=== PATIENT | male | born 2005 | race African-American/Black ===

== ENCOUNTER 2023-08-21 16:44 | Emergency (ER) | payer SELFPAY ==
--- NOTE | 2023-08-21 18:05 | ED Physician Documentation ---
PD HPI HEENT - Stated complaint Stated Complaint: BILAT EAR PX - Chief complaint Chief Complaint: Heent - History obtained from History obtained from: Patient, Family - Additional information Additional information: The patient comes to the emergency department chief complaint of bilateral ear pain and discomfort. He has a longstanding history of ear discomfort which is usually mostly an itching sensation. He also has decreased hearing which he states is chronic. The patient does use ear buds on a regular basis but does not use earplugs. He took a flight from [place] to here on August 09, but denies scuba diving or swimming. No fevers or chills. He did have a cold recently and has some congestion left over from that. He states his right ear is slightly worse than his left ear. He has occasionally noticed a spot of clearish yellow drainage on his pillow after sleeping. He is otherwise healthy and is not a diabetic. No foreign bodies to his ear. No other complaints at this time. No tinnitus. PD PAST MEDICAL HISTORY - Past Medical History Past Medical History: No Cardiovascular: None Respiratory: None Neuro: None Endocrine/Autoimmune: None GI: None : None HEENT: None Psych: None Musculoskeletal: None Derm: None - Past Surgical History Past Surgical History: No - Present Medications Home Medications: Ambulatory Orders Medication Instructions Recorded Confirmed Ciproflox/Dexameth Otic Drops 4 drops OT BID #7.5 ml 08/21/23 [Ciprodex Otic Drops] - Allergies Allergies/Adverse Reactions: Allergies Allergy/AdvReac Type Severity Reaction Status Date / Time No Known Drug Allergies Allergy Verified 08/21/23 16:56 - Social History Does the pt smoke?: No Smoking Status: Never smoker Does the pt drink ETOH?: Yes Does the pt have substance abuse?: No - Immunizations Immunizations are current?: Yes PD ED PE NORMAL - Vitals Vital signs reviewed: Yes - General General: Alert and oriented X 3, No acute distress, Well developed/nourished - HEENT HEENT: Atraumatic, PERRL, EOMI, Moist mucous membranes, Other (Bogginess of bilateral external auditory canals with Moderate cerumen. Mild weeping. Tympanic membranes intact, no erythema.) - Respiratory Respiratory: No respiratory distress - Derm Derm: Normal color, Warm and dry, No rash - Extremities Extremities: No deformity - Neuro Neuro: Other (No gross deficits.) - Psych Psych: Normal mood, Normal affect Results - Vitals Vitals: Vital Signs - 24 hr 08/21/23 16:56 Temperature 37 C Heart Rate 70 Respiratory 16 Rate Blood Pressure 121/73 O2 Saturation 99 Oxygen O2 Source Room air PD Medical Decision Making - ED course Complexity details: considered differential, d/w patient, d/w family ED course: The patient's ears were irrigated and I discussed with the patient and his family that he appears to have a mild otitis externa. I will start him on drops for this. We have discussed keeping his ears clean and especially dry until he completes treatment. Departure - Departure Disposition: Home, Self Care Clinical Impression: Otitis externa Qualifiers: Otitis externa type: noninfectious Noninfectious otitis externa type: unspecified noninfectious type Chronicity: unspecified Laterality: bilateral Qualified Code(s): H60.8X3 - Other otitis externa, bilateral Condition: Stable Instructions: ED Otitis Externa Prescriptions: Ciproflox/Dexameth Otic Drops [Ciprodex Otic Drops] 4 drops OT BID #7.5 ml Comments: Your ears have been washed out today, which should help the drops be more effective. Your ear canals are a bit inflamed and weepy and we will put you on some steroid containing drops for this. It is important that you do not use your ear buds while you are experiencing the ear discomfort and taking the drops, as putting something in your ear like an ear plug or any insertable earphone can prolong the problem. Please follow-up with your doctor if you continue to have trouble for a referral to the ear nose throat specialist. The prescription for your drops has been electronically transmitted to the [facility] pharmacy in [place]. Please pick this up tonight or tomorrow morning and begin the drops in. Forms: PCP List
[2023-08-21 18:45] VITALS: BP 120/74; O2SAT 98
== END 2023-08-21 18:37 | disposition home or self-care (01) ==
LOC: ED 16:44
DX: H60.8X3 Other otitis externa, bilateral (principal)
CPT/HCPCS: 99282; 99283